=== PATIENT | female | born 1970 | race Hispanic/Latino ===

== ENCOUNTER → 2021-12-23 | Outpatient (RCR) | payer OTHER ==
[~2021-12-23] MED LIST: LIDOCAINE VISC 2% SOLN 15 ML UDC ONE; MUPIROCIN 2% OINT 22 GM TUBE ONE
== END ==
LOC: WCC 09:56
PROVIDERS: ATTEND Internal Medicine Infectious Disease
DX: T81.89XA Other complications of procedures, not elsewhere classified, initial encounter (principal); E11.69 Type 2 diabetes mellitus with other specified complication; I10 Essential (primary) hypertension; G99.0 Autonomic neuropathy in diseases classified elsewhere; F32.9 Major depressive disorder, single episode, unspecified; V87.7XXA Person injured in collision between other specified motor vehicles (traffic), initial encounter

== ENCOUNTER 2022-01-06 11:07 | Outpatient (RCR) | payer OTHER ==
[2022-01-06] MEDS ORDERED: LIDOCAINE VISC 2% SOLN 15 ML UDC ONE (12:34)
== END 2022-01-22 ==
LOC: WCC 11:07
PROVIDERS: ATTEND Internal Medicine Infectious Disease
DX: T81.89XA Other complications of procedures, not elsewhere classified, initial encounter (principal); E11.69 Type 2 diabetes mellitus with other specified complication; I10 Essential (primary) hypertension; G99.0 Autonomic neuropathy in diseases classified elsewhere; F32.9 Major depressive disorder, single episode, unspecified; V87.7XXA Person injured in collision between other specified motor vehicles (traffic), initial encounter